=== PATIENT | female | born 1965 | race Caucasian/White ===

== ENCOUNTER 2017-07-30 06:34 | Emergency (ER) | payer OTHER, SELFPAY ==
[2017-07-30 06:58] VITALS: BP 135/71; PULSE 115; RESP 22; TEMP 37.1; O2SAT 98; BMI 21.4
[2017-07-30] MEDS: ALBUTEROL/IPRATROPIUM 3 ML AMPUL INH (07:00)
[2017-07-30 07:06] VITALS: PULSE 102; RESP 20; O2SAT 100
--- NOTE | 2017-07-30 07:15 | ED.URI ---
HPI - URI/Sore Throat General Chief Complaint: Upper Respiratory Symptoms Stated Complaint: SEVERE BRONCHITIS Time Seen by Provider: 07/30/17 07:15 Source: patient and family Mode of arrival: ambulatory Limitations: no limitations History of Present Illness HPI Narrative: Patient is a 52-year-old female presenting with cough for the last 10 days. The cough is definitely worse at night. She has had some body aches and chills. She is doing asthma she has been using her albuterol inhaler without any relief. He just did overall not feeling well. She was taking allergy medicine it was not helping. Complaint: cough Onset (ago): day(s) (10) Duration: intermittent Relieving factors: nothing Exacerbating factors: nothing Related Data Previous Rx's Medication Instructions Recorded codeine-guaifenesin 10 ml PO Q4-6H PRN #150 ml 07/30/17 doxycycline hyclate 100 mg PO BID #14 cap 07/30/17 prednisone 40 mg PO DAILY 5 Days #10 tab 07/30/17 Allergies Allergy/AdvReac Type Severity Reaction Status Date / Time No Known Drug Allergies Allergy Verified 07/30/17 07:13 Review of Systems Review of Systems All systems reviewed & are unremarkable except as noted in HPI and below Constitutional Denies chills, Denies fever(s), Denies lethargy and Denies weakness Cardiovascular Denies chest pain, Denies irregular heart rhythm, Denies lightheadedness, Denies palpitations and Denies orthopnea Respiratory Reports as per HPI, Reports change in phlegm color, Reports chest congestion and Reports pain with cough Gastrointestinal Gastrointestinal: Denies abdominal pain, Denies change in bowel habits, Denies diarrhea, Denies nausea and Denies vomiting Integumentary/Breasts Denies pruritus, Denies erythema, Denies rash and Denies wounds Neurologic Denies weakness Endocrine Denies palpitations PFSH Medical History Asthma (Acute) Social History Smoking Status: Never smoker Exam Initial Vital Signs Initial Vital Signs: Vital Signs Temperature 98.8 F 07/30/17 06:58 Pulse Rate 115 H 07/30/17 06:58 Respiratory Rate 22 07/30/17 06:58 Blood Pressure 135/71 H 07/30/17 06:58 Pulse Oximetry 98 07/30/17 06:58 Const General: cooperative and well developed Nutritional Appearance: well nourished Orientation: alert, awake, oriented x3 and not confused Neck Neck: full ROM and no meningeal signs Chest Chest: normal inspection of the chest Resp Effort & Inspection: normal respiratory effort, able to speak in complete sentences, no respiratory distress and no use of accessory muscles Auscultation: clear to auscultation bilaterally, no rales, no rhonchi and no wheezes Cardio Rate: regular rate Rhythm: regular rhythm Heart Sounds: no click, no gallops, no murmurs and no rubs Pulses: normal peripheral pulses Skin General: no rashes or lesions noted, No jaundice and No petechiae Neuro General: alert, awake and oriented x3 Cranial Nerves: CN's II-XI intact bilaterally Speech: speech normal Course Orders Ordered: Discontinued Medications Albuterol/Ipratropium (Duoneb) 3 ml INH NOW ONE Stop: 07/30/17 07:14 Last Admin: 07/30/17 07:00 Dose: 3 ml Vital Signs - 8 hr 07/30/17 06:58 07/30/17 07:06 07/30/17 07:56 Temperature 98.8 F Pulse Rate 115 H 102 H 110 H Respiratory Rate 22 20 18 Blood Pressure 135/71 H Blood Pressure [Left Arm] 137/84 H Pulse Oximetry 98 100 99 MDM - URI/Sore Throat MDM Narrative Medical decision making narrative: Discussed with the patient and x-ray and labs. At this time we are okay with no x-ray and no labs. Agreeable to short course of prednisone and antibiotics along with some cough syrup. Discharge Plan Departure Patient Disposition: Home, Self-Care Clinical Impression: Atypical pneumonia Discharge Date/Time: 07/30/17 07:58 Interventions: ED Discharge Assessment Last Done: 07/30/17 07:57 Instructions: Atypical Pneumonia Activity Restrictions/Additional Instructions: *You have been diagnosed with atypical pneumonia versus bronchitis *What to do: Fluids, fever control, rest *Continue to take medications as directed -prednisone 40 mg once a day for 5 days -doxycycline 100 mg twice a day for 7 days At your request you're medications have been faxed to [facility] in [place] *Follow up with your primary care provider in 2-3 days *Return to ER if you should have increasing shortness of breath, chest pain or any new, worsening or concerning symptoms Prescriptions: New doxycycline hyclate 100 mg capsule 100 mg PO BID Qty: 14 RF: 0 prednisone 20 mg tablet 40 mg PO DAILY 5 Days Qty: 10 RF: 0 codeine-guaifenesin 8-200 mg/5 mL liquid 10 ml PO Q4-6H PRN (Reason: cough) Qty: 150 RF: 0
[2017-07-30 07:56] VITALS: BP 137/84; PULSE 110; RESP 18; O2SAT 99
== END 2017-07-30 07:58 | disposition home or self-care (01) ==
PROVIDERS: Emergency Provider Emergency Medicine
DX: J18.9 Pneumonia, unspecified organism (principal)
CPT/HCPCS: 94640; 99283